=== PATIENT | male | born 1945 | race Caucasian/White ===

== ENCOUNTER 2019-11-01 09:23 | Day surgery (SDC) | payer MEDICARE ==
[~2019-11-01] VITALS: Ht 185.4 cm; Wt 96.4 kg
[2019-11-01 09:56] VITALS: BP 106/67
[2019-11-01] MEDS ORDERED: DILT180C76 PO (10:03)
[2019-11-01] MEDS ORDERED: HYDROCHLOROTH12.5 MG PO (10:03)
[2019-11-01] MEDS ORDERED: CHOL400C11 PO (10:03)
[2019-11-01] MEDS ORDERED: ATOR10TA PO (10:03)
[2019-11-01] MEDS ORDERED: APIX5TAB PO (10:03)
[2019-11-01] MEDS ORDERED: FINA5TAB4 PO (10:03)
[2019-11-01] MEDS ORDERED: OMEP-110 PO (10:03)
[2019-11-01] MEDS ORDERED: LEVO175T5 PO (10:03)
[2019-11-01] MEDS ORDERED: TAMS-11 PO (10:03)
[2019-11-01] MEDS ORDERED: VIT1TABL34 PO (10:03)
[2019-11-01 10:28] LABS: ANION GAP 6 mmol/L (5-15); CALCIUM 8.6 mg/dL (8.5-10.1); CHLORIDE 109 mmol/L (98-107); CREATININE 1.01 mg/dL (0.7-1.3)
[2019-11-01] MEDS ORDERED: PROPOFOL 10 MG/ML, 20ML ONE (12:05)
== END 2019-11-01 12:50 | disposition home or self-care (01) ==
LOC: CACL 09:23
PROVIDERS: ATTEND Internal Medicine Cardiovascular Disease
DX: I48.91 Unspecified atrial fibrillation (principal); I10 Essential (primary) hypertension; I25.10 Atherosclerotic heart disease of native coronary artery without angina pectoris; I25.2 Old myocardial infarction; E78.5 Hyperlipidemia, unspecified; F17.220 Nicotine dependence, chewing tobacco, uncomplicated; Z79.01 Long term (current) use of anticoagulants; Z79.890 Hormone replacement therapy; Z79.899 Other long term (current) drug therapy; Z88.8 Allergy status to other drugs, medicaments and biological substances; Z82.3 Family history of stroke; Z82.49 Family history of ischemic heart disease and other diseases of the circulatory system
CPT/HCPCS: 36415; 80048; 92960; J2704

== ENCOUNTER → 2020-02-21 | Outpatient (CLI) | payer MEDICARE ==
[~2020-02-21] MED LIST: ACET325T26 PO; APIX5TAB PO; ATOR10TA PO; CHOL400C11 PO; DILT180C76 PO; FINA5TAB4 PO; HYDROCHLOROTH12.5 MG PO; LEVO175T5 PO; OMEP-110 PO; SOTA80TA18 PO; TAMS-11 PO; VIT1TABL34 PO
== END | disposition home or self-care (01) ==
LOC: CFH 08:30
PROVIDERS: ATTEND Internal Medicine Cardiovascular Disease
DX: I48.91 Unspecified atrial fibrillation (principal)
CPT/HCPCS: 75572

== ENCOUNTER 2020-02-22 05:57 | Observation (INO) | payer MEDICARE ==
[~2020-02-22] VITALS: Ht 185.4 cm; Wt 96.8 kg
[~2020-02-22 05:57] MED LIST changes: -ACET325T26 PO; +OMNIPAQUE 350 MG/ML, 150 ML BOTTLE ONE; -SOTA80TA18 PO
[2020-02-22] MEDS ORDERED: SODIUM CHLORIDE 0.9% 1,000 ML IV SCH (06:22)
[2020-02-22 06:26] VITALS: BP 121/79
[2020-02-22 07:21] LABS: BASOPHILS # (AUTO) 0.04 x10^3/uL (0-0.1); BASOPHILS % (AUTO) 1 % (0-1); EOSINOPHILS % (AUTO) 2 % (1-7); LYMPHOCYTES # (AUTO) 1.55 x10^3/uL (1-3.4); LYMPHOCYTES % (AUTO) 30 % (22-44); MD NO; MEAN CORPUSCULAR HEMOGLOBIN 24.8 pg (27.5-34.5); MEAN CORPUSCULAR VOLUME 77.7 fL (81-97); MEAN PLATELET VOLUME 6.7 fL (7.4-10.4); MONOCYTES # (AUTO) 0.62 x10^3/uL (0.2-0.8); MONOCYTES % (AUTO) 12 % (2-9); NEUTROPHILS % (AUTO) 55 % (42-75); PLATELET COUNT 258 x10^3/uL (130-400); RED BLOOD COUNT 5.53 x10^6/uL (4.38-5.82); RED CELL DISTRIBUTION WIDTH 20.8 % (9.4-14.8)
[2020-02-22 07:29] LABS: ANION GAP 8 mmol/L (5-15); CALCIUM 8.7 mg/dL (8.5-10.1); CHLORIDE 109 mmol/L (98-107); CREATININE 1.02 mg/dL (0.7-1.3)
[2020-02-22] MEDS ORDERED: SUCCINYLCHOLINE 20 MG/ML, 10ML ONE (08:09)
[2020-02-22] MEDS ORDERED: PROPOFOL 10 MG/ML, 20ML ONE (08:09)
[2020-02-22] MEDS ORDERED: DEXAMETHASONE 4 MG/ML, 1ML ONE (08:09)
[2020-02-22] MEDS ORDERED: CEFAZOLIN 1,000 MG ONE (08:09)
[2020-02-22] MEDS ORDERED: FENTANYL PF 250 MCG/5ML ONE (08:10)
[2020-02-22] MEDS ORDERED: MIDAZOLAM 1 MG/ML, 2ML ONE (08:10)
[2020-02-22] MEDS ORDERED: LIDOCAINE 1%, 20ML ONE (08:11)
[2020-02-22] MEDS ORDERED: HEPARIN 1,000 UNITS/ML, 10ML ONE ×3 (12:31)
[2020-02-22] MEDS ORDERED: ROCURONIUM 10MG/ML,5ML ONE (12:31)
[2020-02-22] MEDS ORDERED: SUGAMMADEX 200 MG/2 ML IVPush ONE (12:38)
[2020-02-22] MEDS ORDERED: ACETAMINOPHEN 325 MG TABLET PO PRN ×2 (13:00→13:30)
[2020-02-22] MEDS ORDERED: DIAZEPAM 5 MG/ML, 2ML IVPush PRN (13:30)
[2020-02-22] MEDS ORDERED: ONDANSETRON 2MG/ML, 2ML IV PRN (13:30)
[2020-02-22] MEDS ORDERED: HALOPERIDOL 5 MG/ML IV PRN (13:30)
[2020-02-22] MEDS ORDERED: ALBUTEROL SULFATE 2.5 MG/3 ML NPPB PRN (13:30)
[2020-02-22] MEDS ORDERED: PROMETHAZINE 12.5 MG SUPP PR PRN (13:30)
[2020-02-22] MEDS ORDERED: hydrALAzine 20 MG/ML, 1ML IV PRN (13:30)
[2020-02-22] MEDS ORDERED: MEPERIDINE/PF 25MG/ML,1ML IVPush PRN (13:30)
[2020-02-22] MEDS ORDERED: HYDROmorphone 2 MG/ML, 1ML IVPush PRN (13:30)
[2020-02-22] MEDS ORDERED: ONDANSETRON ODT 8 MG PO PRN (13:30)
[2020-02-22] MEDS ORDERED: PROMETHAZINE 25 MG/ML, 1ML IV PRN (13:30)
[2020-02-22] MEDS ORDERED: MIDAZOLAM 1 MG/ML, 2ML IV PRN (13:30)
[2020-02-22] MEDS ORDERED: FENTANYL PF 100 MCG/2ML IV PRN (13:30)
[2020-02-22] MEDS ORDERED: LABETALOL 5MG/ML, 20ML IV PRN (13:30)
[2020-02-22] MEDS ORDERED: EPHEDRINE 50 MG/ML, 1ML IVPush PRN (13:30)
[2020-02-22] MEDS ORDERED: OXYcodone 5 MG/5 ML ORAL.SOL UDC PO PRN (13:30)
[2020-02-22] MEDS ORDERED: APIXABAN 5 MG TABLET ONE (14:03)
[2020-02-22] MEDS ORDERED: APIXABAN 5 MG TABLET PO ONE (14:26)
[2020-02-22] MEDS ORDERED: OXYcodone/APAP 5/325MG TABLET PO PRN (17:30)
[2020-02-22] MEDS ORDERED: MORPHINE SULFATE 4 MG/ML, 1ML IVPush PRN (17:30)
[2020-02-22] MEDS: SOTALOL 80MG TABLET PO SCH (17:54)
[2020-02-22] MEDS ORDERED: ONDANSETRON 2MG/ML, 2ML IVPush PRN (18:00)
[2020-02-22 20:44] VITALS: BP 122/76
[2020-02-22] MEDS: COLCHICINE 0.6 MG CAPSULE PO SCH (20:46)
[2020-02-22] MEDS: DILTIAZEM 90 MG CAP.ER.12H PO SCH (20:46)
[2020-02-22] MEDS ORDERED: ATORVASTATIN 20 MG TABLET PO SCH (21:00)
[2020-02-22] MEDS ORDERED: APIXABAN 5 MG TABLET PO SCH (21:00)
[2020-02-22] MEDS: APIXABAN 5 MG TABLET PO SCH (21:55)
[2020-02-23 02:37] VITALS: BP 107/70
[2020-02-23] MEDS: SOTALOL 80MG TABLET PO SCH (06:00)
[2020-02-23] MEDS ORDERED: LEVOTHYROXINE 175 MCG TABLET PO SCH (06:00)
[2020-02-23 06:53] VITALS: BP 110/71
[2020-02-23] MEDS: COLCHICINE 0.6 MG CAPSULE PO SCH (08:59)
[2020-02-23] MEDS: DILTIAZEM 90 MG CAP.ER.12H PO SCH (08:59)
[2020-02-23] MEDS ORDERED: HYDROCHLOROTHIAZIDE 12.5 MG CAPSULE PO SCH (09:00)
[2020-02-23] MEDS ORDERED: [UNRECOGNIZED DRUG - OTHER] PO SCH (09:00)
[2020-02-23] MEDS ORDERED: VIT E PO SCH (09:00)
[2020-02-23] MEDS ORDERED: VIT A PO SCH (09:00)
[2020-02-23] MEDS ORDERED: COPPER PO SCH (09:00)
[2020-02-23] MEDS ORDERED: FINASTERIDE 5 MG TABLET PO SCH (09:00)
[2020-02-23] MEDS ORDERED: TAMSULOSIN 0.4 MG CAP.ER.24H PO SCH (09:00)
[2020-02-23] MEDS ORDERED: VIT C PO SCH (09:00)
[2020-02-23] MEDS ORDERED: OMEPRAZOLE 20 MG CAPSULE.DR PO SCH (09:00)
[2020-02-23] MEDS ORDERED: ZINC PO SCH (09:00)
[2020-02-23] MEDS: APIXABAN 5 MG TABLET PO SCH (09:00)
[2020-02-23] MEDS ORDERED: CHOLECALCIFEROL 1,000 UNIT TABLET PO SCH (09:00)
[2020-02-23] MEDS ORDERED: ACET325T26 PO (09:59)
[2020-02-23] MEDS ORDERED: SOTA80TA18 PO (09:59)
== END 2020-02-23 11:45 | disposition home or self-care (01) ==
LOC: CACL 05:57 → ORIP 12:51 → 5SO 14:24
PROVIDERS: ADMIT Internal Medicine Cardiovascular Disease; ATTEND Internal Medicine Cardiovascular Disease
DX: I48.91 Unspecified atrial fibrillation (principal); I48.92 Unspecified atrial flutter; E78.5 Hyperlipidemia, unspecified; I10 Essential (primary) hypertension; Z79.01 Long term (current) use of anticoagulants; Z79.899 Other long term (current) drug therapy
CPT/HCPCS: 36415; 80048; 85025; 85347; 93005; 93306; 93312; 93321; 93325; 93613; 93655; 93656; 93657; 93662; 96374; C1730; C1732; C1759; C1766; C1893; C1894; G0378; J0330; J0690; J1100; J1644; J2250; J2405; J2704; J3010; J3490; Q9967

== ENCOUNTER 2020-02-24 22:48 | Inpatient (IN) | payer MEDICARE ==
[~2020-02-24] VITALS: Ht 185.4 cm; Wt 98.1 kg
[~2020-02-24 22:48] MED LIST changes: +ACET325T26 PO; -OMNIPAQUE 350 MG/ML, 150 ML BOTTLE ONE; +SOTA80TA18 PO
--- NOTE | 2020-02-24 23:16 | NUR ---
pt resting on gurney, monitors applied, siderails up x2, call light within reach
--- NOTE | 2020-02-24 23:21 | NUR ---
provided pt with urinal
[2020-02-25] MEDS ORDERED: ENALAPRILAT 1.25 MG/ML, 2ML IVPush PRN
[2020-02-25] MEDS ORDERED: LABETALOL 5MG/ML, 20ML IVPush PRN
[2020-02-25] MEDS ORDERED: ONDANSETRON 2MG/ML, 2ML IVPush PRN
[2020-02-25] MEDS ORDERED: BISACODYL 10 MG SUPP PR PRN
[2020-02-25] MEDS ORDERED: ACETAMINOPHEN 325 MG TABLET PO PRN ×2
[2020-02-25] MEDS ORDERED: ENOXAPARIN 40 MG/0.4 ML SQ SCH
[2020-02-25] MEDS ORDERED: DOCUSATE 100 MG CAPSULE PO PRN
[2020-02-25] MEDS ORDERED: POLYETHYLENE GLYCOL 17 GM PACKET PO PRN
[2020-02-25] MEDS ORDERED: ONDANSETRON ODT 4 MG PO PRN
--- NOTE | 2020-02-25 00:04 | NUR ---
pt resting calmly, denies needs, monitors in place, call light within reach. awaiting room for admit
[2020-02-25 00:17] LABS: TROPONIN I 0.792 ng/mL (0.000-0.045)
--- NOTE | 2020-02-25 00:17 | NUR ---
Trop 0.792, aware
[2020-02-25 00:47] VITALS: BP 111/74
[2020-02-25 03:45] VITALS: BP 117/76
[2020-02-25 05:53] LABS: ALBUMIN 2.9 g/dL (3.4-5.0); ANION GAP 6 mmol/L (5-15); CALCIUM 7.8 mg/dL (8.5-10.1); CHLORIDE 103 mmol/L (98-107)
[2020-02-25 06:00] LABS: ALANINE AMINOTRANSFERASE 38 U/L (12-78); ALKALINE PHOSPHATASE 67 U/L (45-117); BILIRUBIN,TOTAL 0.7 mg/dL (0.2-1.0); CREATININE 1.07 mg/dL (0.7-1.3); MEAN CORPUSCULAR VOLUME 78.1 fL (81-97); MEAN PLATELET VOLUME 7.4 fL (7.4-10.4); PLATELET COUNT 178 x10^3/uL (130-400); RED CELL DISTRIBUTION WIDTH 20.5 % (9.4-14.8); TOTAL PROTEIN 6.8 g/dL (6.4-8.2)
[2020-02-25 06:27] VITALS: BP 102/66
[2020-02-25] MEDS: LEVOTHYROXINE 175 MCG TABLET PO SCH (06:30)
[2020-02-25 06:49] LABS: BASOPHILS # (AUTO) 0.01 x10^3/uL (0-0.1); BASOPHILS % (AUTO) 0 % (0-1); EOSINOPHILS % (AUTO) 0 % (1-7); LYMPHOCYTES # (AUTO) 0.98 x10^3/uL (1-3.4); LYMPHOCYTES % (AUTO) 9 % (22-44); MD SCAN; MONOCYTES # (AUTO) 1.59 x10^3/uL (0.2-0.8); MONOCYTES % (AUTO) 15 % (2-9); NEUTROPHILS # (AUTO) 8.04 x10^3/uL (1.8-6.8); NEUTROPHILS % (AUTO) 76 % (42-75)
[2020-02-25] MEDS: DILTIAZEM CD 180 MG CAP.ER.24H PO SCH ×2 (09:20→21:15)
[2020-02-25] MEDS: APIXABAN 5 MG TABLET PO SCH ×3 (09:20→21:15)
[2020-02-25] MEDS: MULTIVITAMINS/MINERALS TABLET PO SCH (09:20)
[2020-02-25] MEDS: HYDROCHLOROTHIAZIDE 12.5 MG CAPSULE PO SCH (09:21)
[2020-02-25] MEDS: FUROSEMIDE 20 MG/2 ML IV SCH ×2 (09:21→17:30)
[2020-02-25] MEDS: OMEPRAZOLE 20 MG CAPSULE.DR PO SCH (09:21)
[2020-02-25] MEDS: FINASTERIDE 5 MG TABLET PO SCH (09:21)
[2020-02-25] MEDS: TAMSULOSIN 0.4 MG CAP.ER.24H PO SCH (09:21)
[2020-02-25] MEDS: SOTALOL 80MG TABLET PO SCH ×2 (09:21→21:15)
[2020-02-25] MEDS: CHOLECALCIFEROL 1,000 UNIT TABLET PO SCH (09:21)
[2020-02-25 12:15] VITALS: BP 107/67
[2020-02-25] MEDS: POTASSIUM CHLORIDE 20 MEQ TAB.ER.PRT PO SCH (17:29)
[2020-02-25 20:49] VITALS: BP 124/76
[2020-02-25] MEDS ORDERED: ATORVASTATIN 10 MG TABLET PO SCH (21:00)
[2020-02-25 21:15] VITALS: BP 114/66
[2020-02-26 03:12] VITALS: BP 105/64
[2020-02-26 05:05] LABS: BASOPHILS # (AUTO) 0.01 x10^3/uL (0-0.1); BASOPHILS % (AUTO) 0 % (0-1); EOSINOPHILS # (AUTO) 0.02 x10^3/uL (0-0.4); EOSINOPHILS % (AUTO) 0 % (1-7); LYMPHOCYTES # (AUTO) 1.07 x10^3/uL (1-3.4); LYMPHOCYTES % (AUTO) 12 % (22-44); MD NO; MEAN CORPUSCULAR HEMOGLOBIN 24.9 pg (27.5-34.5); MEAN CORPUSCULAR HGB CONC 31.7 g/dL (33.2-36.2); MEAN CORPUSCULAR VOLUME 78.6 fL (81-97); MEAN PLATELET VOLUME 7.6 fL (7.4-10.4); MONOCYTES # (AUTO) 1.34 x10^3/uL (0.2-0.8); MONOCYTES % (AUTO) 15 % (2-9); NEUTROPHILS # (AUTO) 6.73 x10^3/uL (1.8-6.8); NEUTROPHILS % (AUTO) 74 % (42-75); PLATELET COUNT 179 x10^3/uL (130-400); RED BLOOD COUNT 4.33 x10^6/uL (4.38-5.82); RED CELL DISTRIBUTION WIDTH 20.8 % (9.4-14.8)
[2020-02-26 05:12] LABS: ALBUMIN 2.8 g/dL (3.4-5.0); ANION GAP 6 mmol/L (5-15); CALCIUM 8.2 mg/dL (8.5-10.1); CHLORIDE 102 mmol/L (98-107)
[2020-02-26 05:17] LABS: % IRON SATURATION 7 % (20-55); ALANINE AMINOTRANSFERASE 33 U/L (12-78); ALKALINE PHOSPHATASE 68 U/L (45-117); BILIRUBIN,TOTAL 0.9 mg/dL (0.2-1.0); CREATININE 1.04 mg/dL (0.7-1.3); IRON LEVEL 24 mcg/dL (65-175); TOTAL IRON BINDING CAPACITY 332 mcg/dL (250-450); TOTAL PROTEIN 7.1 g/dL (6.4-8.2)
[2020-02-26] MEDS: LEVOTHYROXINE 175 MCG TABLET PO SCH (05:36)
[2020-02-26 06:40] VITALS: BP 107/62
[2020-02-26] MEDS: OMEPRAZOLE 20 MG CAPSULE.DR PO SCH (07:54)
[2020-02-26] MEDS: MULTIVITAMINS/MINERALS TABLET PO SCH (07:55)
[2020-02-26] MEDS: APIXABAN 5 MG TABLET PO SCH (07:55)
[2020-02-26] MEDS: TAMSULOSIN 0.4 MG CAP.ER.24H PO SCH (07:55)
[2020-02-26] MEDS: CHOLECALCIFEROL 1,000 UNIT TABLET PO SCH (07:55)
[2020-02-26] MEDS: SOTALOL 80MG TABLET PO SCH (07:55)
[2020-02-26] MEDS: POTASSIUM CHLORIDE 20 MEQ TAB.ER.PRT PO SCH (07:55)
[2020-02-26] MEDS: FINASTERIDE 5 MG TABLET PO SCH (07:55)
[2020-02-26] MEDS: HYDROCHLOROTHIAZIDE 12.5 MG CAPSULE PO SCH (07:55)
[2020-02-26] MEDS: DILTIAZEM CD 180 MG CAP.ER.24H PO SCH (07:55)
[2020-02-26] MEDS: FUROSEMIDE 20 MG/2 ML IV SCH (07:56)
[2020-02-26] MEDS ORDERED: COLCHICINE 0.6 MG CAPSULE PO SCH (10:00)
[2020-02-26] MEDS ORDERED: MAGNESIUM SULFATE PMX 4GM/100M 100 ML ONE (11:04)
[2020-02-26 12:10] VITALS: BP 113/71
[2020-02-26] MEDS ORDERED: COLC0.6C3 PO (13:40)
[2020-02-26] MEDS ORDERED: FURO20TA3 PO (13:40)
[2020-02-26] MEDS ORDERED: POTA10TA5 PO (13:40)
[2020-02-26] MEDS ORDERED: FERR325T18 PO (14:54)
[2020-02-27] MEDS ORDERED: FUROSEMIDE 20 MG TABLET PO SCH (09:00)
[2020-02-27] MEDS ORDERED: POTASSIUM CHLORIDE 20 MEQ TAB.ER.PRT PO SCH (09:00)
== END 2020-02-26 14:59 | disposition home or self-care (01) | DRG 189 ==
LOC: ED 23:13 → EDIP 23:38 → 5SO 02-25 00:28
PROVIDERS: ADMIT Internal Medicine; ATTEND Family Medicine
DX: J96.01 Acute respiratory failure with hypoxia (principal); D68.69 Other thrombophilia; I48.19 Other persistent atrial fibrillation; E87.70 Fluid overload, unspecified; D50.9 Iron deficiency anemia, unspecified; D72.829 Elevated white blood cell count, unspecified; E03.9 Hypothyroidism, unspecified; E78.5 Hyperlipidemia, unspecified; I08.1 Rheumatic disorders of both mitral and tricuspid valves; K21.9 Gastro-esophageal reflux disease without esophagitis; N40.0 Benign prostatic hyperplasia without lower urinary tract symptoms; K57.30 Diverticulosis of large intestine without perforation or abscess without bleeding; K76.89 Other specified diseases of liver; N28.1 Cyst of kidney, acquired; Z66 Do not resuscitate; Z79.01 Long term (current) use of anticoagulants; R79.89 Other specified abnormal findings of blood chemistry
CPT/HCPCS: 36415; 80053; 82728; 83540; 83550; 83735; 83880; 84443; 84484; 85025; 93005; 93308; 93321; 93325; G0378; J1940

== ENCOUNTER 2020-05-30 10:02 | Day surgery (SDC) | payer MEDICARE ==
[~2020-05-30] VITALS: Ht 185.4 cm; Wt 98.6 kg
[~2020-05-30 10:02] MED LIST changes: +COLC0.6C3 PO; +FERR325T18 PO; +FURO20TA3 PO; +POTA10TA5 PO
[2020-05-30 10:30] VITALS: BP 106/75
[2020-05-30 10:39] LABS: BASOPHILS # (AUTO) 0.02 x10^3/uL (0-0.1); BASOPHILS % (AUTO) 1 % (0-1); EOSINOPHILS # (AUTO) 0.05 x10^3/uL (0-0.4); EOSINOPHILS % (AUTO) 1 % (1-7); LYMPHOCYTES % (AUTO) 26 % (22-44); MD NO; MEAN CORPUSCULAR HEMOGLOBIN 26.4 pg (27.5-34.5); MEAN CORPUSCULAR HGB CONC 31.7 g/dL (33.2-36.2); MEAN CORPUSCULAR VOLUME 83.1 fL (81-97); MEAN PLATELET VOLUME 6.6 fL (7.4-10.4); MONOCYTES # (AUTO) 0.68 x10^3/uL (0.2-0.8); MONOCYTES % (AUTO) 13 % (2-9); NEUTROPHILS # (AUTO) 3.16 x10^3/uL (1.8-6.8); NEUTROPHILS % (AUTO) 60 % (42-75); PLATELET COUNT 247 x10^3/uL (130-400); RED BLOOD COUNT 5.62 x10^6/uL (4.38-5.82); RED CELL DISTRIBUTION WIDTH 18.6 % (9.4-14.8)
[2020-05-30 10:52] LABS: ANION GAP 4 mmol/L (5-15); CALCIUM 8.8 mg/dL (8.5-10.1); CHLORIDE 107 mmol/L (98-107)
[2020-05-30] MEDS ORDERED: SODIUM CHLORIDE FLUSH 10ML SYR IVF SCH (21:00)
== END 2020-05-30 13:35 | disposition home or self-care (01) ==
LOC: CACL 10:02
PROVIDERS: ATTEND Internal Medicine Cardiovascular Disease
DX: I48.92 Unspecified atrial flutter (principal); I48.91 Unspecified atrial fibrillation; I10 Essential (primary) hypertension; E78.5 Hyperlipidemia, unspecified; Z79.899 Other long term (current) drug therapy; Z79.01 Long term (current) use of anticoagulants; Z88.8 Allergy status to other drugs, medicaments and biological substances; Z87.891 Personal history of nicotine dependence; Z72.89 Other problems related to lifestyle
CPT/HCPCS: 36415; 80048; 85025; 92960; 93005

== ENCOUNTER 2020-10-19 11:30 | Emergency (ER) | payer MEDICARE ==
[~2020-10-19] VITALS: Ht 185.4 cm; Wt 103.0 kg
[2020-10-19] MEDS ORDERED: SODIUM CHLORIDE FLUSH 10ML SYR IVF ONE (12:00)
[2020-10-19 12:18] LABS: BASOPHILS % (AUTO) 1 % (0-1); EOSINOPHILS % (AUTO) 0 % (1-7); LYMPHOCYTES % (AUTO) 16 % (22-44); MEAN CORPUSCULAR HEMOGLOBIN 27.9 pg (27.5-34.5); MEAN CORPUSCULAR HGB CONC 33.3 g/dL (33.2-36.2); MEAN PLATELET VOLUME 6.8 fL (7.4-10.4); MONOCYTES % (AUTO) 17 % (2-9); NEUTROPHILS % (AUTO) 66 % (42-75); PLATELET COUNT 235 x10^3/uL (130-400); RED BLOOD COUNT 5.08 x10^6/uL (4.38-5.82); RED CELL DISTRIBUTION WIDTH 15.4 % (9.4-14.8)
[2020-10-19 12:20] LABS: MD NO
[2020-10-19 12:29] LABS: CHLORIDE 101 mmol/L (98-107)
[2020-10-19 12:42] LABS: ALBUMIN 3.3 g/dL (3.4-5.0); ANION GAP 4 mmol/L (5-15); CALCIUM 9.3 mg/dL (8.5-10.1); CREATININE 1.11 mg/dL (0.7-1.3); TROPONIN I < 0.015 ng/mL (0.000-0.045)
--- NOTE | 2020-10-19 12:44 | NUR ---
PT CAME IN CO OF CHEST PAIN THAT HE DESCRIBES SHARP THAT GETS WORSE WHEN HE LAYS DOWN. PT CONNECTED TO MONITORING EQUIPMENT. EKG COMPLETE. LABS DRAWN.
--- NOTE | 2020-10-19 12:45 | NUR ---
PATIENT AMBULATED TO ROOM UNASSISTED, STATES SHARP RIGHT SIDED CHEST PAIN DEEP BREATHING.
--- NOTE | 2020-10-19 14:28 | NUR ---
PATIENT AMBULATORY UPON DISCHARGE FROM DEPARTMENT, RETURNED APPROPRIATE INFORMATION POST DISCHARGE, MEDICATION AND FOLLOW UP TEACHING.
[2020-10-19 14:29] VITALS: BP 122/61
== END 2020-10-19 14:32 | disposition home or self-care (01) ==
LOC: ED 13:16
DX: R07.89 Other chest pain (principal); R60.0 Localized edema; R06.02 Shortness of breath; I10 Essential (primary) hypertension; E78.5 Hyperlipidemia, unspecified; I48.91 Unspecified atrial fibrillation; I25.2 Old myocardial infarction; K21.9 Gastro-esophageal reflux disease without esophagitis; Z87.891 Personal history of nicotine dependence
CPT/HCPCS: 36415; 71045; 80048; 82040; 83880; 84484; 85025; 93005; 99285

== ENCOUNTER → 2021-03-27 | Outpatient (CLI) | payer MEDICARE ==
[~2021-03-27] MED LIST changes: +ASPI81TA45 PO; +CHOL500045 PO; +GABA-826 PO; +MELO7.5T31 PO; +SENN1TAB68 PO
[2021-03-27 10:52] LABS: MICROSCOPIC NOT IND
[2021-03-27 10:53] LABS: BASOPHILS % (AUTO) 1 % (0-1); EOSINOPHILS % (AUTO) 1 % (1-7); LYMPHOCYTES % (AUTO) 22 % (22-44); MEAN CORPUSCULAR HEMOGLOBIN 30.9 pg (27.5-34.5); MEAN PLATELET VOLUME 6.8 fL (7.4-10.4); MONOCYTES % (AUTO) 13 % (2-9); NEUTROPHILS % (AUTO) 63 % (42-75); PLATELET COUNT 200 x10^3/uL (130-400); RED BLOOD COUNT 5.12 x10^6/uL (4.38-5.82); RED CELL DISTRIBUTION WIDTH 15.2 % (9.4-14.8)
[2021-03-27 10:55] LABS: MD NO
[2021-03-27 11:03] LABS: ALANINE AMINOTRANSFERASE 20 U/L (12-78); ALBUMIN 3.7 g/dL (3.4-5.0); ANION GAP 2 mmol/L (5-15); CHLORIDE 106 mmol/L (98-107); INTERNATIONAL NORMALIZED RATIO 0.99 (0.93-1.1); PROTHROMBIN TIME 10.6 Seconds (9.6-11.5)
[2021-03-27 11:06] LABS: ALKALINE PHOSPHATASE 95 U/L (45-117); BILIRUBIN,TOTAL 1.1 mg/dL (0.2-1.0); CREATININE 0.74 mg/dL (0.7-1.3); TOTAL PROTEIN 7.6 g/dL (6.4-8.2)
== END | disposition home or self-care (01) ==
LOC: STAR 09:22
PROVIDERS: ATTEND Neurological Surgery
DX: Z01.810 Encounter for preprocedural cardiovascular examination (principal); Z01.812 Encounter for preprocedural laboratory examination; Z01.89 Encounter for other specified special examinations; R94.31 Abnormal electrocardiogram [ECG] [EKG]; R79.1 Abnormal coagulation profile; M48.061 Spinal stenosis, lumbar region without neurogenic claudication; M51.36 Other intervertebral disc degeneration, lumbar region; R82.90 Unspecified abnormal findings in urine; M25.70 Osteophyte, unspecified joint; Z20.822 Contact with and (suspected) exposure to COVID-19
CPT/HCPCS: 36415; 71046; 80053; 81003; 85025; 85610; 85730; 93005; U0003; U0005